=== PATIENT | male | born 1955 | race Caucasian/White ===

== ENCOUNTER 2017-10-27 10:43 | Day surgery (SDC) | payer OTHER ==
[2017-10-26 11:16] VITALS: BMI 31.3
[~2017-10-27 10:43] MED LIST: Cyclopentolate 1% Opth Drop 2 ML BOT FS SCH; Cyclopentolate 1% Opth Drop 2 ML BOT ONE; EPINEPHrine 0.3 MG, Dextrose 50% 3 ML in Ophthalmic Irrigation Solution 500 ML FS SCH; Phenylephrine 2.5% Ophth Soln 5 ML BOT FS SCH; Phenylephrine 2.5% Ophth Soln 5 ML BOT ONE
[2017-10-27] MEDS ORDERED: Phenylephrine 2.5% Ophth Soln 5 ML BOT ONE (11:21)
[2017-10-27] MEDS ORDERED: Cyclopentolate 1% Opth Drop 2 ML BOT ONE (11:21)
[2017-10-27] MEDS ORDERED: Midazolam HCl 2 mg/2 ml Vial ONE (12:47)
[2017-10-27] MEDS ORDERED: PROPOFOL 20 ML ONE (12:47)
--- NOTE | 2017-10-27 15:09 | OP ---
DATE OF PROCEDURE: 10/27/2017 PREOPERATIVE DIAGNOSES: Vitreus hemorrhage; glaucoma; posterior synechiae of the iris, right eye. POSTOPERATIVE DIAGNOSES: Vitreus hemorrhage; glaucoma; posterior synechiae of the iris, right eye. PROCEDURE: Pars plana vitrectomy, panretinal photocoagulation, tube shunt, scleral patch graft, pupi lloplasty right eye. SURGEON: Remy Silverio M.D. ANESTHESIA: Local with monitored anesthesia care. COMPLICATIONS: None. PROCEDURE IN DETAIL: The patient was identified in the preoperative holding area and appropriate inf ormed consent for the planned surgical procedure on the right eye had been obtained. The patient was transported to the operative suite where appropriate cardiopulmonary monitoring was established. Lo alanna anesthesia was obtained using retrobulbar and modified Van Lint lid block using 50/50 mixture of 4% lidocaine and 0.75% bupivacaine. The patient was prepped and draped in the usual sterile manner f or ophthalmic surgery on the right eye. Lid speculum was placed in the right eye. FP7 tube shunt wa s placed superior temporally and fixated in place with 5-0 mersilene sutures. Trocars were placed mcwilliams pratemporally, inferotemporally, and supranasally. Infusion line was placed inferotemporally. Light pipe and vitreous cutter were inserted into the eye. Core vitrectomy was performed. Vitreous hemor rhage was removed. Panretinal photocoagulation was placed in all non-macular areas of the retina. I ris hooks used to stretch and lyse posterior synechiae of the iris. Tube shunt was placed through th e conjunctival limbus superior temporally, covered with a Tutoplast graft which was fixated in place with 7-0 Vicryl suture. Conjunctiva was closed with 6-0 plain gut suture. Retrobulbar Kenalog and s ubconjunctival Ancef were placed. Atropine and antibiotic ointment were placed, and the eye was patc hed and shielded. The patient was taken to the postoperative recovery unit in good condition having suffered no immediate perioperative complications. DISCHARGE INSTRUCTIONS: The patient was instructed to keep patch and shield on, avoid lifting or ethel ding, and follow up in the morning with Dr. Silverio.
[2017-10-27] MEDS ORDERED: PROPOFOL 200 MG/20 ML VIAL ONE (15:45)
== END 2017-10-27 14:50 | disposition home or self-care (01) ==
LOC: SDC 10:43
PROVIDERS: ATTEND Ophthalmology Retina Specialist
PROC: 08T43ZZ Resection of Right Vitreous, Percutaneous Approach (ICD-10-PCS; principal; 2017-10-27)
PROC: 08QE3ZZ Repair Right Retina, Percutaneous Approach (ICD-10-PCS; principal; 2017-10-27)
PROC: 08123J4 Bypass Right Anterior Chamber to Sclera with Synthetic Substitute, Percutaneous Approach (ICD-10-PCS; principal; 2017-10-27)
DX: H43.11 Vitreous hemorrhage, right eye (principal); H40.9 Unspecified glaucoma; H21.541 Posterior synechiae (iris), right eye; Z79.84 Long term (current) use of oral hypoglycemic drugs; Z79.899 Other long term (current) drug therapy
CPT/HCPCS: J0171; J2250; J2704